=== PATIENT | female | born 1960 | race African-American/Black ===

== ENCOUNTER 2021-08-05 23:24 | Emergency (ER) | payer OTHER ==
[~2021-08-05] VITALS: Ht 167.6 cm; Wt 69.0 kg
[2021-08-05] MEDS ORDERED: PREDNISONE 20MG TABLET PO STA (23:29)
[2021-08-05] MEDS ORDERED: ALBUTEROL (0.083%) 2.5MG/3ML NEB HHN STA (23:29)
[2021-08-05] MEDS ORDERED: IPRATROPIUM BROMIDE (0.02%) 0.5MG/2.5ML NEB HHN STA (23:29)
[2021-08-06] MEDS ORDERED: P20 MT (01:18)
[2021-08-06 01:28] VITALS: BP 119/60
== END 2021-08-06 01:32 | disposition home or self-care (01) ==
LOC: ER 23:24
DX: J68.0 Bronchitis and pneumonitis due to chemicals, gases, fumes and vapors (principal); E03.9 Hypothyroidism, unspecified; Z88.0 Allergy status to penicillin
CPT/HCPCS: 71045; 94640; 99291; Z7610